=== PATIENT | male | born 1960 | race Caucasian/White ===

== ENCOUNTER → 2021-08-14 | Outpatient (CLI) | payer BC ==
[~2021-08-14] MED LIST: CRESTOR20 MG; FISH OIL 1,0001 EAC9; TOPROL XL50 MG
== END ==
LOC: SJCVCIMAG 09:57
PROVIDERS: ATTEND Internal Medicine
DX: I49.3 Ventricular premature depolarization (principal); I25.9 Chronic ischemic heart disease, unspecified; R00.0 Tachycardia, unspecified; R07.9 Chest pain, unspecified; R06.00 Dyspnea, unspecified; R94.31 Abnormal electrocardiogram [ECG] [EKG]; R00.2 Palpitations; I25.10 Atherosclerotic heart disease of native coronary artery without angina pectoris; E78.5 Hyperlipidemia, unspecified; G47.33 Obstructive sleep apnea (adult) (pediatric)

== ENCOUNTER → 2021-08-29 | Outpatient (CLI) | payer BC ==
[~2021-08-29] VITALS: Ht 172.7 cm; Wt 124.0 kg
[2021-08-29 07:28] VITALS: BP 124/75
--- NOTE | 2021-08-29 09:34 | CATHLAB ---
[facility] [place] [address] INVASIVE PROCEDURE REPORT Name: CATHY JIMENEZ Room #: REG DAVON [facility]#: [id number] Admission: 08/29/21 Attend Phys: Erich Grijalva MD, Discharge: Date of : 62 Report #: [id number] THIS REPORT FOR: cc: TAMI KASPER APRN, Erich Lancaster APRN, MD [facility] ~ APPROVED REPORT Study performed: 08/29/2021 08:06:42 Patient Details Patient Status: Out-Patient Room #: The patient is a 61 year-old male Event Personnel Erich Grijalva Tip Mender, Jose Cid RTR Monitor, Diana Steiner RN RN, Sravani Choi RTR Scrub Procedures Performed Art Access - R femoral artery* Left Heart Cath w/or w/o Coronaries [id number] [facility] Hemostasis w/ Mynx 13412 Initial Mod Sed Same Phys/QHP Gr5y 036250 01857 Mod Sed Same Phys/QHP Ea 241143 Indication Chest pain Procedure Narrative The patient was brought electively to the Cardiac Catheterization Laboratory and was prepped and draped in a sterile manner. The Right Groin^ was infiltrated with 1% Lidocaine subcutaneous anesthesia. A PINNACLE 6FR Sheath #[id number] sheath was inserted into the RFA^. Coronary angiography was performed using coronary diagnostic catheters. The right coronary system was accessed and visualized with a JR4 catheter. The left coronary system was accessed and visualized with a JL4 catheter. The left ventricle was accessed and visualized with a PIGTAIL catheter. Left ventricular/Aortic Valve gradient assessed via catheter pullback. Left ventriculogram was performed in 30 degree projection. Closure device was deployed with a Fr MYNXGRIP 6/7F #[id number]. The patient tolerated the procedure well and there were no complications associated with the procedure. There was no hematoma. Intraoperative Conscious Sedation Sedation start time: 8:06 Case end Time: [facility] [address] [place] [address] INVASIVE PROCEDURE REPORT Name: LYNDADEBBICATHY Room #: REG [facility]#: [id number] Admission: 08/29/21 Attend Phys: Erich Grijalva, Discharge: Date of : 62 Report #: [id number] 8:49 Fentanyl 50 mcg Versed 1 mg Fluoro Time: 1.60 minutes Dose: DAP 41122.30 cGycm2 1174 mGy Contrast Type and Amount: Omnipaque 120 ml Coronary Angiography The patient's coronary anatomy is right dominant. Diagnostic Cath Left Main Mild distal plaquing LAD 75-80% calcified proximal LAD stenosis involving the first diagonal branch. 40-50% stenosis involving the distal third of the LAD. 85% apical LAD stenosis Diagonal 1 Moderate ostial diagonal branch plaquing Circumflex Nondominant circumflex. 75% proximal stenosis OM1 Moderate scattered sequential 40-50% mid vessel stenoses Right Coronary Dominant right coronary with 95% mid vessel stenosis Moderate diffuse plaquing throughout the proximal right coronary R PDA Moderate plaquing at the origin of a posterior descending branch Ramus Large bifurcating marginal branch. 60-70% proximal stenosis after its bifurcation, inferior limb 80% stenosis, superior limb. Small vessel Left Ventriculography The left ventricle is normal in size with normal contractility. The left ventricular ejection fraction is estimated to be 60-65%. Left ventricular wall motion abnormalities are not present. There is no mitral insufficiency. Hemodynamics The aortic pressure is 117/57 mmHg with a mean of 85 mmHg. The left ventricular pressure is 114/12 mmHg with a mean of mmHg. The left ventricular end diastolic pressure is 25 mmHg. Pullback from the left ventricle to the aorta revealed no gradient across the aortic valve. Conclusion 1. Normal global and regional left ventricular systolic function. EF 65%. [facility] [address] [place] [address] INVASIVE PROCEDURE REPORT Name: CATHY JIMENEZ Room #: REG [facility]#: [id number] Admission: 08/29/21 Attend Phys: Erich Grijalva, Discharge: Date of : 62 Report #: [id number] 2. Mild left main plaquing 3. Severe multivessel coronary disease. Right coronary dominant circulation <ELECTRONICALLY SIGNED> By: Erich Grijalva MD, [facility] 08/29/2134 3 3 Erich Grijalva MD, [facility] /INF
[2021-08-29 10:09] LABS: URINE BILIRUBIN NEGATIVE (Negative); URINE BLOOD TRACE (Negative); URINE CLARITY CLEAR; URINE COLOR YELLOW; URINE GLUCOSE-RANDOM* NEGATIVE (Negative); URINE KETONES NEGATIVE (Negative); URINE LEUKOCYTES-REFLEX NEGATIVE (Negative); URINE NITRITE-REFLEX NEGATIVE (Negative); URINE PROTEIN (DIPSTICK) NEGATIVE (Negative); URINE UROBILINOGEN 0.2 E.U./dl (0.2-1.0)
== END | disposition home or self-care (01) ==
LOC: CATH 06:18
PROVIDERS: Surgery Vascular Surgery; ATTEND Internal Medicine
DX: R07.9 Chest pain, unspecified (principal); I25.10 Atherosclerotic heart disease of native coronary artery without angina pectoris; E78.5 Hyperlipidemia, unspecified; E03.9 Hypothyroidism, unspecified; K21.9 Gastro-esophageal reflux disease without esophagitis; Z98.890 Other specified postprocedural states; Z79.899 Other long term (current) drug therapy

== ENCOUNTER → 2021-09-14 | Outpatient (CLI) | payer BC ==
[~2021-09-14] MED LIST changes: +ASPIRIN EC81 M1 PO; -CRESTOR20 MG; +CRESTOR20 MG PO; -FISH OIL 1,0001 EAC9; +FISH OIL 1,0001 EAC9 PO; +MULTI VITAMIN1 EACH PO; -TOPROL XL50 MG; +TOPROL XL50 MG PO
== END ==
LOC: SJCVCIMAG 07:19
PROVIDERS: ATTEND Internal Medicine
DX: Z01.810 Encounter for preprocedural cardiovascular examination (principal); I08.3 Combined rheumatic disorders of mitral, aortic and tricuspid valves; I65.23 Occlusion and stenosis of bilateral carotid arteries; R94.31 Abnormal electrocardiogram [ECG] [EKG]; R06.00 Dyspnea, unspecified; I25.10 Atherosclerotic heart disease of native coronary artery without angina pectoris; R53.83 Other fatigue; E78.5 Hyperlipidemia, unspecified; K21.9 Gastro-esophageal reflux disease without esophagitis; E03.9 Hypothyroidism, unspecified; Z87.891 Personal history of nicotine dependence; Z72.89 Other problems related to lifestyle; Z79.82 Long term (current) use of aspirin; Z79.899 Other long term (current) drug therapy

== ENCOUNTER 2021-09-19 09:17 | Inpatient (IN) | payer BC ==
[~2021-09-19] VITALS: Ht 172.7 cm; Wt 123.1 kg
[2021-09-29] VITALS (29 sets, daily range): BP systolic 102–134; BP diastolic 55–74
[2021-09-29 13:13] LABS: MCH 30.2 pg (26.0-34.0); MCHC 33.5 g/dL (28.0-37.0); RBC 2.96 mil/uL (4.50-6.00); RDW 12.2 % (10.5-14.5); WBC 9.7 thou/uL (4.0-11.0)
[2021-09-29 13:15] LABS: HEMOGLOBIN 8.9 gm/dL (14.0-18.0)
[2021-09-29 13:16] LABS: HEMATOCRIT 26.6 % (42.0-52.0)
[2021-09-29 13:29] LABS: APTT 26.8 Seconds (24.5-32.8); INR 1.45
[2021-09-29 13:31] LABS: PROTIME 15.5 Seconds (10.5-12.1)
[2021-09-29 14:11] LABS: POC BE 1 mmol/L (-2.0 to +3.0); POC CA IONIZED 4.8 mg/dL (4.5-5.3); POC GLUCOSE 161 mg/dL (70-99); POC HCO3 25.3 mmol/L (22.0-26.0); POC HEMOGLOBIN 8.8 g/dL (14.0-18.0); POC POTASSIUM 3.3 mmol/L (3.5-5.1); POC SODIUM 141 mmol/L (136-145); POC pCO2 40.8 mmHg (35.0-45.0); POC pH 7.401 (7.360-7.450)
[2021-09-29 14:11] LABS: POC BE 6 mmol/L (-2.0 to +3.0); POC CA IONIZED 3.9 mg/dL (4.5-5.3); POC GLUCOSE 154 mg/dL (70-99); POC HCO3 29.2 mmol/L (22.0-26.0); POC HEMOGLOBIN 10.2 g/dL (14.0-18.0); POC POTASSIUM 5.7 mmol/L (3.5-5.1); POC SODIUM 138 mmol/L (136-145); POC pCO2 38.7 mmHg (35.0-45.0); POC pH 7.485 (7.360-7.450)
[2021-09-29 14:11] LABS: POC BE 3 mmol/L (-2.0 to +3.0); POC CA IONIZED 4.1 mg/dL (4.5-5.3); POC GLUCOSE 184 mg/dL (70-99); POC HCO3 26.9 mmol/L (22.0-26.0); POC HEMOGLOBIN 9.9 g/dL (14.0-18.0); POC POTASSIUM 3.5 mmol/L (3.5-5.1); POC SODIUM 142 mmol/L (136-145); POC pCO2 40.1 mmHg (35.0-45.0); POC pH 7.434 (7.360-7.450)
[2021-09-29 14:11] LABS: POC BE 5 mmol/L (-2.0 to +3.0); POC CA IONIZED 4.3 mg/dL (4.5-5.3); POC GLUCOSE 150 mg/dL (70-99); POC HCO3 29.4 mmol/L (22.0-26.0); POC HEMOGLOBIN 12.2 g/dL (14.0-18.0); POC POTASSIUM 4.9 mmol/L (3.5-5.1); POC SODIUM 138 mmol/L (136-145); POC pCO2 42.7 mmHg (35.0-45.0); POC pH 7.446 (7.360-7.450)
[2021-09-29 14:11] LABS: POC BE 7 mmol/L (-2.0 to +3.0); POC CA IONIZED 4.5 mg/dL (4.5-5.3); POC GLUCOSE 117 mg/dL (70-99); POC HCO3 30.9 mmol/L (22.0-26.0); POC HEMOGLOBIN 12.2 g/dL (14.0-18.0); POC SODIUM 139 mmol/L (136-145); POC pCO2 42.8 mmHg (35.0-45.0); POC pH 7.467 (7.360-7.450)
[2021-09-29 14:11] LABS: POC BE 5 mmol/L (-2.0 to +3.0); POC CA IONIZED 4.1 mg/dL (4.5-5.3); POC GLUCOSE 170 mg/dL (70-99); POC HCO3 28.6 mmol/L (22.0-26.0); POC HEMOGLOBIN 10.5 g/dL (14.0-18.0); POC POTASSIUM 4.5 mmol/L (3.5-5.1); POC SODIUM 140 mmol/L (136-145); POC pCO2 40.8 mmHg (35.0-45.0); POC pH 7.454 (7.360-7.450)
[2021-09-29 14:11] LABS: POC BE 4 mmol/L (-2.0 to +3.0); POC CA IONIZED 4.1 mg/dL (4.5-5.3); POC GLUCOSE 189 mg/dL (70-99); POC HCO3 28.2 mmol/L (22.0-26.0); POC HEMOGLOBIN 9.9 g/dL (14.0-18.0); POC POTASSIUM 3.6 mmol/L (3.5-5.1); POC SODIUM 141 mmol/L (136-145); POC pCO2 39.3 mmHg (35.0-45.0); POC pH 7.464 (7.360-7.450)
[2021-09-29 14:11] LABS: POC BE -2 mmol/L (-2.0 to +3.0); POC CA IONIZED 4.6 mg/dL (4.5-5.3); POC GLUCOSE 147 mg/dL (70-99); POC HCO3 23.9 mmol/L (22.0-26.0); POC HEMOGLOBIN 11.2 g/dL (14.0-18.0); POC POTASSIUM 3.7 mmol/L (3.5-5.1); POC SODIUM 141 mmol/L (136-145); POC pCO2 42.6 mmHg (35.0-45.0); POC pH 7.356 (7.360-7.450)
--- NOTE | 2021-09-29 14:30 | NUR ---
Pt recieved from surgery personnel, sedated and on the vent. Low dose Cardene on. Placed on the monitor, shows NSR pacer off but attached. SG and Teresa intact. Anes stated that they were not able to plast the SG that we would only be able to get the CVP at this time. Plan is to start the Flotrac. Good output and SVO2 79. Dr Sanders and leyda at the bedside. Will cont to monitor.
[2021-09-29 14:50] LABS: HEMATOCRIT 37.1 % (42.0-52.0); MCH 29.9 pg (26.0-34.0); MCHC 33.4 g/dL (28.0-37.0); MCV 89.6 fL (80.0-100.0); RBC 4.14 mil/uL (4.50-6.00); RDW 12.5 % (10.5-14.5); WBC 17.8 thou/uL (4.0-11.0)
[2021-09-29 14:59] LABS: CALCIUM 7.9 mg/dL (8.5-10.1); CREATININE 0.9 mg/dL (0.7-1.3); MAGNESIUM 2.4 mg/dL (1.8-2.4); POTASSIUM 4.3 mmol/L (3.5-5.1)
[2021-09-29 14:59] LABS: BE(vivo) -4.3 mmol/L (-2 to +3); HCO3 20.6 mmol/L (22.0-26.0); PCO2 37.2 mmHg (35.0-45.0); PO2 89.9 mmHg (80.0-100.0); pH 7.361 (7.360-7.450); sO2 96.6 % (92.0-98.0)
[2021-09-29 15:02] LABS: HEMOGLOBIN 12.4 gm/dL (14.0-18.0)
[2021-09-29 15:05] LABS: APTT 29.4 Seconds (24.5-32.8); INR 1.22; PROTIME 13.2 Seconds (10.5-12.1)
--- NOTE | 2021-09-29 15:06 | NUR ---
Dc planning consult rec'd. Chart reviewed and pt is s/p CABGx5 today and still in recovery with tx to the ICU. Pt was working and indep prior to admission. She is his emergency contact and dpoa for hc which was notorized this am per Spritual care. The pt's pcp is Dr. Yarely Vargas. The pt does use a home cpap. Cm will follow along and reassess early next week for any dc planning needs.
--- NOTE | 2021-09-29 16:00 | NUR ---
Pt waking up and following commands will have RT evaluate pt for poss. weaning trail. ABG"s and ekg done. pt's at the bedside and the ICU environment explained to her. questions answered. Daugther here also. Pt c/oimg of pain medicated.
--- NOTE | 2021-09-29 16:30 | NUR ---
Dr Sanders here to see.
--- NOTE | 2021-09-29 16:45 | NUR ---
RT here to explain to patient how the weaning process will go. nods his head in agreement. Pt on cpap. Silvia well. All parameters good.
[2021-09-29 17:00] LABS: BE(vivo) -4.1 mmol/L (-2 to +3); HCO3 20.9 mmol/L (22.0-26.0); PCO2 37.8 mmHg (35.0-45.0); PO2 94.5 mmHg (80.0-100.0)
--- NOTE | 2021-09-29 17:00 | NUR ---
RT here to do abg's and weaning parameters . Called to Dr Sanders and plan is to extubate the patient. 1715 pt extubated and eulalia process well. VSS. Oral hygiene done. hob up at pt's request. Will cont to monitor patients progress.
--- NOTE | 2021-09-29 18:30 | NUR ---
Pt still c/oing of pain pain pills given x2.
--- NOTE | 2021-09-29 19:00 | NUR ---
Report givemn to oncoming RN.
[2021-09-29 19:27] LABS: CALCIUM 7.5 mg/dL (8.5-10.1); POTASSIUM 4.3 mmol/L (3.5-5.1)
[2021-09-30] VITALS (7 sets, daily range): BP systolic 99–124; BP diastolic 55–70
[2021-09-30 05:38] LABS: HEMATOCRIT 33.4 % (42.0-52.0); MCHC 32.9 g/dL (28.0-37.0); RBC 3.67 mil/uL (4.50-6.00); RDW 12.9 % (10.5-14.5)
[2021-09-30 05:51] LABS: CALCIUM 7.4 mg/dL (8.5-10.1); CREATININE 0.9 mg/dL (0.7-1.3); MAGNESIUM 2.4 mg/dL (1.8-2.4); POTASSIUM 4.4 mmol/L (3.5-5.1)
--- NOTE | 2021-09-30 07:17 | NUR ---
Pt progressing toward goals. Pain adequately controlled during night with Fentanyl 50 mcg IVP. Pt remains awake, alert, oriented x, normally rates pain 9/10 pre medication and 3-4 post medication. Able to titrate off Cardene gtt by 1999. CI = 2.5 to 3. and CO = 6.5-7.5 Micah Trac dc'd this a.m. with [place] cath. Able to titrate O2 down from 4 L canula to [address] x2 to -20 cmH2O had 280 cc sanguinous drainage for this shift. Left plural CT to -20 cmH2O had 60 cc sero-sanguinous drainage this shif. No air leaks or crepius at either site.
--- NOTE | 2021-09-30 09:39 | EKG ---
[address] [address] ELECTROCARDIOGRAM REPORT Name: BARBARACATHY Room #: 248-P ADM IN M.R.#: [id number] Admission: 09/29/21 Attend Phys: Eyad Sanders MD Discharge: Date of : 62 Report #: [id number] [facility] Test Date: 2021-09-29 Test Time: 16:40:58 Pat Name: CATHY JIMENEZ Department: Room: 248 Gender: M Junior Project Manager: NICHOL : 1960 Requested By: Nakul Nicholson Order Number: [id number] : Adria Griffin Measurements Intervals [place] Rate: 78 P: -22 WV: 149 QRS: 14 QRSD: 98 T: 51 QT: 453 QTc: 517 Interpretive Statements Sinus rhythm Compared to ECG 09/14/2021 14:27:14 Myocardial infarct finding no longer present Electronically Signed On 09-30-2021 9:39:22 PARACHUTE HARNESS RIGGER by Adria Griffin [email or web address] <ELECTRONICALLY SIGNED> By: Adria Griffin MD, [facility] 09/30/21 0939 [facility] Rolo Griffin MD FACAdalberto /EPI
--- NOTE | 2021-09-30 09:43 | EKG ---
[address] [address] ELECTROCARDIOGRAM REPORT Name: JVJULIOCATHY Room #: 248- ADM IN M.R.#: [id number] Admission: 09/29/21 Attend Phys: Eyad Sanders MD Discharge: Date of : 62 Report #: [id number] [facility] Test Date: 2021-09-30 Test Time: 07:36:47 Pat Name: CATHY JIMENEZ Department: Room: 248 P Gender: M Plant Cytologist: NICHOL : 1960 Requested By: Nakul Nicholson Order Number: [id number] MD: Adria Griffin Measurements Intervals [place] Rate: 85 P: -20 [place]: 144 QRS: -3 QRSD: 118 T: 13 QT: 444 QTc: 528 Interpretive Statements Sinus rhythm Nonspecific intraventricular conduction delay Inferior infarct, old Compared to ECG 09/29/2021 16:40:58 Intraventricular conduction delay now present Myocardial infarct finding now present Prolonged QT interval no longer present Electronically Signed On 09-30-2021 9:42:48 BILINGUAL ACCOUNT MANAGER by Adria Griffin [email or web address] <ELECTRONICALLY SIGNED> By: Adria Griffin MD, [facility] 09/30/21 0942 0736 0736 Adria Griffin MD, [facility] /EPI
[2021-09-30 12:05] LABS: ALBUMIN 3.9 g/dL (3.4-5.0); DIRECT BILIRUBIN 0.1 mg/dL (<0.1-0.2); PHOSPHORUS 3.4 mg/dL (2.5-4.9); TOTAL BILIRUBIN 0.4 mg/dL (0.2-1.0); TOTAL PROTEIN 6.2 g/dL (6.4-8.2)
[2021-09-30 12:30] LABS: FOLIC ACID 10.9 ng/mL (8.6-58.9)
[2021-10-01] VITALS (11 sets, daily range): BP systolic 96–134; BP diastolic 49–68
[2021-10-01 05:55] LABS: HEMATOCRIT 29.1 % (42.0-52.0); HEMOGLOBIN 9.7 gm/dL (14.0-18.0); MCH 30.3 pg (26.0-34.0); MCHC 33.3 g/dL (28.0-37.0); MCV 90.9 fL (80.0-100.0); RBC 3.2 mil/uL (4.50-6.00); RDW 12.8 % (10.5-14.5); WBC 11.6 thou/uL (4.0-11.0)
[2021-10-01 06:08] LABS: CALCIUM 7.8 mg/dL (8.5-10.1); CREATININE 0.7 mg/dL (0.7-1.3)
[2021-10-02] VITALS (8 sets, daily range): BP systolic 90–111; BP diastolic 50–66
--- NOTE | 2021-10-02 06:00 | NUR ---
A VERY DELIGHTFUL GENTLEMAN. HAS BEEN UP IN THE CHAIR ALL NIGHT DUE TO BED BEING VERY UNCOMFORTABLE. VSS SINUS RHYTHM. CHEST DSG INTACT WITH EDWARDO DRESSING. LUNGS ESS CLEAR. VOIDING SHILPA URINE. IN GOOD SPIRITS. PROGRESSING TOWARD GOALS
--- NOTE | 2021-10-02 08:21 | NUR ---
Nutrition: Received consult post op CABG. RD will followup when closer to D/C to assess education needs
--- NOTE | 2021-10-02 09:14 | NUR ---
DISCUSSED OT WITH PATIENT AND HE DOES NOT FEEL HE NEEDS IT. HE HAS WALKED WELL WITH PT, JUST WANTS TO GO HOME WHERE AND DAUGHTER LIVE. HE HAS A WALK IN SHOWER WITH NO CONCERNS. NO OT EVAL
--- NOTE | 2021-10-02 15:44 | NUR ---
S/p CABG x 5. Up to chair. therapy ordered. O2 1 L/nc. Will cont following if needs arise.
--- NOTE | 2021-10-03 03:01 | NUR ---
assumed pt care at 1900, alert and orientedx4, very pleasant, assessments as charted, pts bp in the 902s systolic with map in the high 50s, held amiodarone, bp recheck with map >65, remains sr on the monitor with hr is the 70s, pain meds given for strenal and abdominal pain with good relief, no nausea and vomiting noted, no bm yet miralax and prune juice given, up stby assist to the bathroom, picco dressing intact, no drainage, chest tube sites dessing intact, no distress noted, will continue to monitor
[2021-10-03 03:22] LABS: HEMATOCRIT 27.5 % (42.0-52.0); HEMOGLOBIN 9.2 gm/dL (14.0-18.0); MCH 30.4 pg (26.0-34.0); MCHC 33.3 g/dL (28.0-37.0); MCV 91.1 fL (80.0-100.0); RBC 3.02 mil/uL (4.50-6.00); RDW 12.6 % (10.5-14.5); WBC 8.7 thou/uL (4.0-11.0)
[2021-10-03 03:48] LABS: CALCIUM 8.3 mg/dL (8.5-10.1); CREATININE 0.8 mg/dL (0.7-1.3); POTASSIUM 3.7 mmol/L (3.5-5.1)
[2021-10-03 04:59] VITALS: BP 112/56
--- NOTE | 2021-10-03 07:48 | EKG ---
[address] [employer] [place] [address] ELECTROCARDIOGRAM REPORT Name: COOPER JIMENEZDEBBI Boyce Room #: 206- ADM IN M.R.#: [id number] Admission: 09/29/21 Attend Phys: Eyad Sanders MD Discharge: Date of : 62 Report #: [id number] [facility] Test Date: 2021-10-03 Test Time: 07:37:03 Pat Name: CATHY JIMENEZ Department: Room: 206 P Gender: M Sustainable Products Marketing Manager: HEIDI : 1960 Requested By: Nakul Nicholson Order Number: [id number] : Adria Griffin Measurements Intervals [place] Rate: 88 P: -12 [place]: 152 QRS: 10 QRSD: 85 T: 17 QT: 465 QTc: 563 Interpretive Statements Sinus rhythm Inferior infarct, old Prolonged QT interval Compared to ECG 09/30/2021 07:36:47 Prolonged QT interval now present Intraventricular conduction delay no longer present Myocardial infarct finding still present Electronically Signed On 10-03-2021 7:48:48 DATA ENTRY ASSISTANT by Adria Griffin [email or web address] <ELECTRONICALLY SIGNED> By: Adria Griffin MD, [facility] 10/03/21 0748 Adria Griffin MD, [facility] /EPI
[2021-10-03 09:28] VITALS: BP 103/64
[2021-10-03] MEDS ORDERED: METOPROLOL SUCC25 M1 PO (09:31)
[2021-10-03] MEDS ORDERED: LISINOPRIL10 MG PO (09:33)
[2021-10-03] MEDS ORDERED: PACERONE 200 M200 M1 PO (09:35)
[2021-10-03 12:10] VITALS: BP 117/58
--- NOTE | 2021-10-03 12:40 | NUR ---
CHART REVIEWED AND DISCUSSED WITH CARE TEAM. THERAPY RECOMMENDS NO NEEDS ANTICIPATED ONCE MEDICALLY STABLE TO DC. CM WILL CONTINUE TO FOLLOW AND ASSESS IF CM NEEDS ARE INDICATED.
[2021-10-03] MEDS ORDERED: FERREX 150 PLU1 EAC1 PO (15:33)
--- NOTE | 2021-10-03 16:56 | NUR ---
PATIENT IV AND HEART MONITOR WAS REMOVED. PATIENT AND STATED UNDERSTANDING OF ALL D/C INSTRUCTIONS. PATIENT WILL FOLLOW UP WITH DOCTORS APPOINTMENTS. PATIENT WILL GET HIS MEDICATION FROM THE DRUG STORE. PATIENT WAS WHEELED TO THE ER ENTRENCE AND HIS PICKED HIM UP IN THE CAR.
--- NOTE | 2021-10-07 09:38 | O ---
[facility] [place] [address] OPERATIVE REPORT Name: CATHY JIMENEZ Room #: 206-P [facility] IN M.R.#: [id number] Admission: 09/29/21 Attend Phys: Eyad Sanders MD Discharge: 10/03/21 Date of : 62 Report #: [id number] THIS REPORT FOR: cc: TAMI KASPER APRN, Eyad Fraga APRN, MD ~ DATE OF SERVICE: 09/29/2021 PREOPERATIVE DIAGNOSIS: Coronary artery disease. POSTOPERATIVE DIAGNOSIS: Coronary artery disease. OPERATION: Coronary artery bypass x 5 including left internal mammary artery to left anterior descending artery, saphenous vein to diagonal, ramus, and marginal and saphenous vein to posterior descending artery and endoscopic harvest, left greater saphenous vein. SURGEON: Eyad Sanders MD CUSTOMER SERVICE DRIVER: CHRISTOPHER Guy. ANESTHESIA: General. INDICATIONS: The patient is a 61-year-old, seen for Dr. Grijalva. The patient has unstable angina and important 3-vessel coronary disease with the culprit lesion probably the high-grade mid right coronary artery stenosis. FINDINGS AND TECHNIQUE: After general anesthesia was established, saphenous vein was harvested using an endoscopic approach and prepared for use as a conduit. Exposure was obtained through median sternotomy. Left internal mammary artery was harvested from chest wall. Pericardial well was made. Cannulation sutures were placed. Heparin was given. Aorta was cannulated. Right atrium was cannulated. Cardioplegia needle was positioned in the aortic root. Retrograde cardioplegic catheter was placed in the coronary sinus. Cardiopulmonary bypass was established. Aorta was cross clamped. Antegrade and retrograde cardioplegia were given. Ice was poured into the pericardial well. The heart was stopped. During electromechanical arrest, the distal anastomoses were performed. An end-to-side anastomosis was made between vein and the posterior descending artery. Cold cardioplegia was given. Separate segment of vein was sewn in end-to-side fashion to the distal marginal artery. Cold cardioplegia was given. The same segment of vein was sewn in end-to-side fashion to the large second branch of the ramus intermedius. Cold cardioplegia was given. The same segment [facility] [address] [place] [address] OPERATIVE REPORT Name: CATHY IJMENEZ Room #: 206-P [facility] IN .R.#: [id number] Admission: 09/29/21 Attend Phys: Eyad Sanders MD Discharge: 10/03/21 Date of : 62 Report #: [id number] of vein was sewn in end-to-side fashion to the diagonal artery. Cold cardioplegia was given. Left internal mammary artery was sewn in end-to-side fashion to the left anterior descending artery. Patency of this vessel was checked with the temperature technique and the Doppler. Cold cardioplegia was given. Two proximal anastomoses were performed. When these were complete, warm retrograde cardioplegia was given followed by warm continuous blood to the coronary sinus. When this infusion was complete, the crossclamp was removed. De-airing maneuvers were performed and anastomoses were inspected and found to be satisfactory. As the patient warmed, nice cardiac activity resumed, chest tubes and pacing wires were placed. A marker was placed around the proximal anastomoses. When the patient was warm, he was weaned from cardiopulmonary bypass. Venous cannula was removed. Protamine was given, the aortic cannula was removed. Flows were measured in the bypass grafts. When hemostasis was satisfactory, chest was irrigated with antibiotic solution and closed in the usual fashion. The patient was taken to the Intensive Care Unit in good condition having tolerated the procedure well. All counts were reported as correct. It should be noted that we were unable to pass the swan during surgery. 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 Nevertheless, we were able to protect the heart and performed the essentials of cardiopulmonary bypass without any major difficulties. <ELECTRONICALLY SIGNED> By: Eyad Sanders MD 10/07/21 0938 1857 [id number] Eyad Sanders MD /nt
== END 2021-10-03 17:47 | disposition home or self-care (01) | DRG 236 ==
LOC: PRE 09:17 → TBA 09-29 06:02 → 2N 09-29 06:02 → PRE 09-29 07:35 → ICU 09-29 13:46 → 2N 10-02 16:14
PROVIDERS: Physician Assistant; ADMIT Surgery Vascular Surgery; ATTEND Surgery Vascular Surgery
PROC: 02100Z9 Bypass Coronary Artery, One Artery from Left Internal Mammary, Open Approach (ICD-10-PCS; principal; 2021-09-29)
PROC: 021009W Bypass Coronary Artery, One Artery from Aorta with Autologous Venous Tissue, Open Approach (ICD-10-PCS; principal; 2021-09-29)
PROC: 06BQ4ZZ Excision of Left Saphenous Vein, Percutaneous Endoscopic Approach (ICD-10-PCS; principal; 2021-09-29)
PROC: 021 Heart and Great Vessels, Bypass (ICD-10-PCS; principal; 2021-09-29)
PROC: 5A09357 Assistance with Respiratory Ventilation, Less than 24 Consecutive Hours, Continuous Positive Airway Pressure (ICD-10-PCS; 2021-10-01)
PROC: 0BH17EZ Insertion of Endotracheal Airway into Trachea, Via Natural or Artificial Opening (ICD-10-PCS; 2021-10-01)
PROC: 5A1221Z Performance of Cardiac Output, Continuous (ICD-10-PCS; 2021-10-02)
DX: I25.10 Atherosclerotic heart disease of native coronary artery without angina pectoris (principal); Z68.41 Body mass index [BMI] 40.0-44.9, adult; Z20.822 Contact with and (suspected) exposure to COVID-19; Z79.899 Other long term (current) drug therapy; K21.9 Gastro-esophageal reflux disease without esophagitis; E78.5 Hyperlipidemia, unspecified; E66.01 Morbid (severe) obesity due to excess calories; D64.89 Other specified anemias; E03.9 Hypothyroidism, unspecified
CPT/HCPCS: 10078; 10081; 47000; 47001; 47002; 47297; 48889; 50249; 50668; 51301; 52259; 52287; 53327; 53358; 54118; 56455; 56524; 56525; 56526; 56527; 56528; 56531; 56534; 56668; 56719; 56760; 56898; 57093; 57167; 58585; 58856; 58901; 58918; 62110; 62950; 65003; 65020; 65040; 65090; 65120; 65135

== ENCOUNTER → 2021-09-28 | Outpatient (CLI) | payer BC ==
--- NOTE | ~2021-09-28 | HC ---
[facility] [address] CONSULTATION Name: CATHY JIMENEZ Room #: REG DAVON Tali#: [id number] Admission: 09/28/21 Attend Phys: Karla Mandel DO Discharge: Date of : 62 Report #: [id number] THIS REPORT FOR: cc: TAMI KASPER APRN, Erich Lancaster APRN, MD [facility] ~ REASON FOR CONSULTATION: Coronary artery disease. HISTORY OF PRESENT ILLNESS: The patient is a 61-year-old gentleman with hypertension, dyslipidemia, sleep apnea and high-grade coronary artery disease. He presents for surgical revascularization. He reports a several month history of exertional breathlessness and burning chest pain, especially with climbing stairs or walking briskly. An outpatient stress study suggested provokable ischemia, which ultimately led to coronary angiography demonstrating severe multivessel disease. His ejection fraction is normal. He has been on beta blockade, aspirin and statin with persistent, progressive symptoms. No heart failure symptoms including orthopnea, paroxysmal nocturnal dyspnea or lower extremity edema. He has been compliant with CPAP. No history of near syncope or syncope. No history of tobacco dependency or diabetes. There is a strong family history of aortic aneurysm. His mother had bypass surgery at the age of 81. ALLERGIES: No known drug allergies. MEDICATIONS: Aspirin one a day, Bystolic 5 mg daily, rosuvastatin 20 mg daily. PAST MEDICAL HISTORY: Past history and medical records have been reviewed and include a history of dyslipidemia, reflux disease, sleep apnea, hypertension. SOCIAL HISTORY: He has never been a smoker. He is . FAMILY HISTORY: Father had an aortic aneurysm. Mother had bypass surgery. Brother had prostate cancer. REVIEW OF SYSTEMS: All systems negative except as that noted above. PHYSICAL EXAMINATION: GENERAL: A pleasant gentleman in no distress. VITAL SIGNS: Blood pressure is 140/80, heart rate of 80 and regular, 5 feet 8 inches tall, 274 pounds. There are neither xanthelasma, subcutaneous xanthomata, oral mucosal or digital cyanosis or kyphoscoliosis present. CHEST: Clear to auscultation and percussion. CARDIAC: Regular rate and rhythm with normal S1, S2. No murmurs, gallops or rubs. [facility] [address] [place] [address] CONSULTATION Name: CATHY JIMENEZ Room #: REG [facility].#: [id number] Admission: 09/28/21 Attend Phys: Karla Mandel DO Discharge: Date of : 62 Report #: [id number] ABDOMEN: Soft and nontender. EXTREMITIES: Without cyanosis, clubbing or edema. NEUROLOGIC: He is alert with a nonfocal exam. EKG: Sinus rhythm. LABORATORY WORK: Remains pending. IMPRESSION: 1. Severe multivessel coronary artery disease. 2. Progressive, unstable angina. 3. Dyslipidemia. 4. Sleep apnea, on CPAP. RECOMMENDATIONS: 1. Continued efforts towards aggressive risk factor modification. 2. Surgical revascularization. This was discussed with the patient in detail. Questions have been answered. I will follow along with you in the perioperative setting. Thank you for asking me to participate in his care. By: 0811 1151 Erich Grijalva MD, FACC /nt
== END ==
LOC: LAB 09:58
PROVIDERS: ATTEND Student in an Organized Health Care Education/Training Program
DX: Z01.812 Encounter for preprocedural laboratory examination (principal); Z20.822 Contact with and (suspected) exposure to COVID-19; Z98.61 Coronary angioplasty status